=== PATIENT | male | born 1995 | race Two or more races ===

== ENCOUNTER 2020-08-17 09:19 | Outpatient (CLI) | payer OTHER | END 2020-08-17 09:20 | disposition home or self-care (01) | LOC: LAB 09:19 | PROVIDERS: ATTEND Pediatrics Neonatal-Perinatal Medicine | DX: Z03.818 Encounter for observation for suspected exposure to other biological agents ruled out (principal) ==

== ENCOUNTER 2022-09-06 09:32 | Emergency (ER) | payer OTHER ==
[~2022-09-06] VITALS: Ht 175.3 cm; Wt 127.0 kg
== END 2022-09-06 14:33 | disposition home or self-care (01) ==
LOC: ER 09:32
DX: J03.90 Acute tonsillitis, unspecified (principal); Z20.822 Contact with and (suspected) exposure to COVID-19